=== PATIENT | female | born 1980 | race Caucasian/White ===

== ENCOUNTER 2016-09-05 18:07 | Emergency (ER) | payer OTHER ==
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
[~2016-09-05 18:07] MED LIST: CLARITIN10 MG PO; COLACE PO; DOXYCYCLINE PO; FERROUS SULFATE PO; INDOCIN SR75 MG PO; PHENERGAN25 MG PO; PREDNISONE PO
== END 2016-09-05 19:17 | disposition home or self-care (01) ==
LOC: SED 18:07
DX: S13.4XXA Sprain of ligaments of cervical spine, initial encounter (principal); F17.200 Nicotine dependence, unspecified, uncomplicated; Z88.0 Allergy status to penicillin; V49.40XA Driver injured in collision with unspecified motor vehicles in traffic accident, initial encounter; Y92.410 Unspecified street and highway as the place of occurrence of the external cause
CPT/HCPCS: 72040; 99283